=== PATIENT | female | born 1995 | race Caucasian/White ===

== ENCOUNTER 2019-03-19 08:15 | Outpatient (CLI) | payer OTHER ==
[2019-03-19] MEDS ORDERED: Gadobenate Dimeglumine 529 MG/1 ML (20ML VIAL) ONE (09:00)
--- NOTE | 2019-03-19 10:45 | MRI ---
MRI BRAIN WITH AND WITHOUT IV CONTRAST: HISTORY: Migraine headaches. COMPARISON: None. FINDINGS: No restricted diffusion is seen. No evidence of infarct, hemorrhage, mass, midline shift, or abnorma l extraaxial fluid collections is seen. The ventricular size is normal and the basilar cisterns staples nt. No abnormal postcontrast enhancement is seen. No significant signal abnormality is seen on the highly sensitive FLAIR images. There is mucosal disease in the paranasal sinuses. IMPRESSION: 1. Normal MRI of the brain. 2. Paranasal sinus disease. POS: OFF
== END 2019-03-19 08:16 | disposition home or self-care (01) ==
LOC: SCSMRI 08:15
PROVIDERS: ATTEND Physician Assistant
DX: G43.909 Migraine, unspecified, not intractable, without status migrainosus (principal); J32.9 Chronic sinusitis, unspecified
CPT/HCPCS: 70553; A9577